=== PATIENT | female | born 1995 | race African-American/Black ===

== ENCOUNTER 2018-08-28 13:11 | Emergency (ER) | payer OTHER, SELFPAY ==
[~2018-08-28 13:11] MED LIST: Sodium Chloride Irrig Solution 250 ML BOT ONE
[2018-08-28] MEDS ORDERED: Bupivacaine HCl 0.5%/Epinephrine 1:200,000/PF 30 ml Vial ONE (13:36)
[2018-08-28] MEDS ORDERED: Acetaminophen/Codeine 30-300mg Tablet ONE (14:02)
[2018-08-28] MEDS ORDERED: Amoxicillin/Potassium Clav 875 MG TAB ONE (14:02)
== END 2018-08-28 14:20 | disposition home or self-care (01) ==
LOC: MADERS 13:11
DX: K04.7 Periapical abscess without sinus (principal); F17.210 Nicotine dependence, cigarettes, uncomplicated
CPT/HCPCS: 41800; 99406; J0670

== ENCOUNTER 2019-03-21 15:09 | Emergency (ER) | payer SELFPAY | END 2019-03-21 15:33 | disposition home or self-care (01) | LOC: MADERS 15:09 | DX: J02.0 Streptococcal pharyngitis (principal); H61.21 Impacted cerumen, right ear; F17.210 Nicotine dependence, cigarettes, uncomplicated | CPT/HCPCS: 99282 ==

== ENCOUNTER 2021-11-17 13:16 | Emergency (ER) | payer SELFPAY ==
[2021-11-17] MEDS ORDERED: Ibuprofen 600 MG TAB ONE (13:59)
== END 2021-11-17 14:47 | disposition home or self-care (01) ==
LOC: MADERS 13:16
DX: S29.012A Strain of muscle and tendon of back wall of thorax, initial encounter (principal); V49.40XA Driver injured in collision with unspecified motor vehicles in traffic accident, initial encounter; F17.210 Nicotine dependence, cigarettes, uncomplicated

== ENCOUNTER 2023-12-24 11:11 | Emergency (ER) | payer SELFPAY ==
[~2023-12-24 11:11] MED LIST changes: +Iopamidol 370 76% 100 ML VIAL ONE; -Sodium Chloride Irrig Solution 250 ML BOT ONE
[2023-12-24 12:41] LABS: Bilirubin Negative (Negative); Blood, Urine Negative (Negative); Glucose, Urine (Dipstick) Negative (Negative); Ketone, Urine Negative (Negative); Leukocyte Negative (Negative); Nitrite Negative (Negative); Protein, Urine (Dipstick) 30 mg/dL (Neg-Trace); pH, Urine 8.5 (5.0-9.0)
[2023-12-24 12:42] LABS: Pregnancy Test - Urine (BHCG) Negative (Negative)
[2023-12-24 12:43] LABS: Clarity Hazy (Clear); Pregu Control Background? CLEAR/WHITE (CLR/WHITE); Pregu Control Bar Appear? YES (CONTROL BAR)
[2023-12-24 12:44] LABS: CAUTI Indications for Culture Pelvic or flank pain
[2023-12-24 12:47] LABS: Bacteria/HPF 1+ HPF (None Seen); RBC/HPF 0-3 HPF (0-3); WBC/HPF 0-3 HPF (0-3)
[2023-12-24 12:48] LABS: Urine Culture Reflex No No
[2023-12-24] MEDS ORDERED: Ondansetron PF 4 MG/2 ML Vial ONE (13:02)
[2023-12-24] MEDS ORDERED: Sodium Chloride 0.9% 1,000 ML ONE (13:02)
[2023-12-24] MEDS ORDERED: Ketorolac Tromethamine 30 MG (1 mL) VIAL ONE (13:21)
[2023-12-24 13:41] LABS: ALT (SGPT) 12 U/L (8-55); AST (SGOT) 21 U/L (5-34); Albumin 4.1 g/dL (3.5-5.0); Alkaline Phosphatase 80 U/L (40-110); Anion Gap 15 mmol/L (10-20); BUN (Urea Nitrogen) 5 mg/dL (7.0-18.7); Bilirubin, Total 0.4 mg/dL (0.2-1.2); Calc. Creatinine Clearance 0 mL/min (70-130); Calcium 9.4 mg/dL (7.8-10.44); Carbon Dioxide 20 mmol/L (22-29); Chloride 105 mmol/L (98-107); Estimated GFR 120; Globulin 3.9 g/dL (2.4-3.5); Glucose 97 mg/dL (70-105); Potassium 3.2 mmol/L (3.5-5.1); Sodium 137 mmol/L (136-145)
[2023-12-24 14:13] LABS: Band 2 % (5-11); Critical Call w/ Read Back NUR.MWC@1328; Hematocrit 18.3 % (36.0-47.0); Hemoglobin 5.4 g/dL (12.0-16.0); Hypochromia MODERATE=16-30 cells (100X) (0-5/hpf); Lymphocytes 21 % (21-51); MDiff Complete? YES; Mean Corpuscular HGB CONC 29.3 g/dL (32.0-36.0); Mean Corpuscular Hemoglobin 18.8 pg (27.0-31.0); Mean Corpuscular Volume 64.2 fl (78.0-98.0); Mean Platelet Volume 8.4 fL (7.4-10.4); Microcytosis SLIGHT = 6-15 cells (100X) (0-5/hpf); Monocytes 5 % (0-10); Neutrophil 72 % (42-75); Platelet Adequacy Comment Appears Adequate; Platelet Count 272 10x3/uL (130-400); RBC Distribution Width 18.2 % (11.5-14.5); Red Blood Cell (RBC) Count 2.86 mill/uL (4.20-5.40); Reflex for Review?? YES; White Blood Cell (WBC) Count 5.5 10x3/uL (4.8-10.8)
[2023-12-24 14:40] LABS: Lipase Less than 4 U/L (8-78)
[2023-12-24 14:48] LABS: Prothrombin Time 13.5 sec (12.0-14.7)
[2023-12-24 15:12] LABS: PTT 21.1 sec (22.9-36.1)
== END 2023-12-24 16:15 | disposition short-term general hospital (02) ==
LOC: MADERS 11:11
DX: N83.201 Unspecified ovarian cyst, right side (principal); D64.9 Anemia, unspecified; F17.210 Nicotine dependence, cigarettes, uncomplicated
CPT/HCPCS: 36415; 36430; 74018; 74177; 80053; 81001; 81025; 83605; 83690; 85025; 85060; 85610; 85730; 86850; 86900; 86901; 96361; 96374; 96375; J1885; J2405; J7050; P9016; Q9967